=== PATIENT | male | born 1985 | race Caucasian/White ===

== ENCOUNTER 2017-10-07 11:13 | Emergency (ER) | payer OTHER ==
[2017-10-07 11:18] VITALS: BMI 35.2
[2017-10-07 11:20] VITALS: RESP 17; O2SAT 98
--- NOTE | 2017-10-07 11:39 | ED PDOC ---
HPI: CCC, URI, Sore Throat Time Seen by Provider: 10/07/17 11:34 Chief Complaint (Nursing): Cough, Cold, Congestion Chief Complaint (Provider): cough History Per: Patient, Family ( at bedside is translating for patient in tajik) Additional Complaint(s): 32-year-old male presents to emergency department with cough that has been intermittent for one month. Patient states over the past 2 days cough has worsened and he now has headache and body aches. Patient denies recent travel or known sick contacts. He states he has not taken any medication for the cough. Past Medical History Reviewed: Historical Data, Nursing Documentation, Vital Signs Vital Signs: Last Vital Signs Temp 98.1 F 10/07/17 11:18 Pulse 62 10/07/17 11:18 Resp 17 10/07/17 11:18 BP 118/60 10/07/17 11:18 Pulse Ox 98 10/07/17 12:18 - Medical History PMH: No Chronic Diseases - Surgical History Surgical History: No Surg Hx - Family History Family History: States: No Known Family Hx - Living Arrangements Living Arrangements: With Family - Social History Current smoker - smoking cessation education provided: No Ex-Smoker (has not smoked in the last 12 months): No Alcohol: None Drugs: Denies - Home Medications Home Medications: Ambulatory Orders Medication Instructions Recorded Albuterol HFA [Ventolin HFA 90 1 puff IH Q6 PRN #1 inhaler 10/07/17 mcg/actuation (8 g)] Azithromycin [Zithromax] 250 mg PO DAILY #6 tab 10/07/17 Benzonatate 200 mg PO TID PRN #20 capsule 10/07/17 - Allergies Allergies/Adverse Reactions: Allergies Allergy/AdvReac Type Severity Reaction Status Date / Time No Known Allergies Allergy Verified 10/07/17 11:33 Review of Systems ROS Statement: Except As Marked, All Systems Reviewed And Found Negative Constitutional: Positive for: Other (body aches). Negative for: Fever Respiratory: Positive for: Cough. Negative for: Shortness of Breath Gastrointestinal: Negative for: Vomiting Neurological: Positive for: Headache Physical Exam - Reviewed Nursing Documentation Reviewed: Yes Vital Signs Reviewed: Yes - Physical Exam Appears: Positive for: Well, Non-toxic, No Acute Distress Skin: Negative for: Rash Eye Exam: Positive for: Normal appearance ENT: Positive for: Normal ENT Inspection Cardiovascular/Chest: Positive for: Regular Rate, Rhythm Respiratory: Positive for: Rhonchi. Negative for: Accessory Muscle Use, Crackles, Rales, Wheezing, Respiratory Distress Back: Negative for: L CVA Tenderness, R CVA Tenderness Extremity: Positive for: Normal ROM Neurologic/Psych: Positive for: Alert, Oriented - ECG O2 Sat by Pulse Oximetry: 98 Pulse Ox Interpretation: Normal - Other Rad CXR X-Ray: Interpreted by Me, Viewed By Me X-Ray Interpretation: no infiltrate Nebulizer Treatments/Peak Flow - Duonebs Number of Bronchodilator Doses given?: 1 (duoneb) - Pre/Post Peak Flow Pre Treatment Peak Flow: 250 Post treatment Peak Flow: 300 - Steroid Treatment Steroid: Not Clinically Indicated - Clinical Response Clinical Response: Improved Medical Decision Making Medical Decision Makin32 year old with cough, headache and body aches Plan: CXR Duoneb x 1 Flu swab Flu is negative. Patient aware of diagnostic test results, all questions answered. Prescriptions provided for Tessalon Perles, Ventolin inhaler and Zithromax. Patient was referred to clinic for follow up. Disposition - Clinical Impression Clinical Impression: Bronchitis - Patient ED Disposition Is Patient to be Admitted: No Counseled Patient/Family Regarding: Studies Performed, Diagnosis, Need For Followup, Rx Given - Disposition Referrals: [facility] [Outside] Disposition: Routine/Home Disposition Time: 13:06 Condition: STABLE Additional Instructions: Take prescription medications as directed. Follow up in 2-3 days with clinic. Prescriptions: Albuterol HFA [Ventolin HFA 90 mcg/actuation (8 g)] 1 puff IH Q6 PRN #1 inhaler PRN Reason: Cough Azithromycin [Zithromax] 250 mg PO DAILY #6 tab Benzonatate 200 mg PO TID PRN #20 capsule PRN Reason: Cough Instructions: Acute Bronchitis (ED) Forms: [employer] ([place]), [facility] ED School/Work Excuse Print Language: PU[place] R[place]
[2017-10-07] MEDS ORDERED: Albuterol-Ipratrop 3 mg / 0.5 (3 ml) UD INH STA (11:54)
[2017-10-07] MEDS ORDERED: Albuterol-Ipratrop 3 mg / 0.5 (3 ml) UD ONE (12:05)
[2017-10-07 13:29] VITALS: BP 126/78; PULSE 78; TEMP 97
--- NOTE | 2017-10-07 15:47 | RAD ---
HISTORY: cough COMPARISON: No prior. TECHNIQUE: Chest PA and lateral FINDINGS: LUNGS: No active pulmonary disease. PLEURA: No significant pleural effusion identified. No pneumothorax apparent. CARDIOVASCULAR: Normal. OSSEOUS STRUCTURES: No significant abnormalities. VISUALIZED UPPER ABDOMEN: Normal. OTHER FINDINGS: None. IMPRESSION: No active disease.
== END 2017-10-07 13:29 | disposition home or self-care (01) ==
LOC: H.ER 11:13
DX: J40 Bronchitis, not specified as acute or chronic (principal); Z87.891 Personal history of nicotine dependence